=== PATIENT | male | born 1990 | race Two or more races ===

== ENCOUNTER 2018-01-03 18:57 | Emergency (ER) | payer MEDICAID ==
[2018-01-03 19:35] VITALS: BP 155/74; PULSE 75; RESP 16; TEMP 98.6; O2SAT 98
--- NOTE | 2018-01-03 20:48 | ED PDOC ---
HPI: Male Pain Time Seen by Provider: 01/03/18 20:13 Chief Complaint (Nursing): Groin Pain Chief Complaint (Provider): Groin Pain History Per: Patient History/Exam Limitations: no limitations Onset/Duration Of Symptoms: Hrs Current Symptoms Are (Timing): Still Present Additional Complaint(s): 27 y/o male with no significant PMHx presents to the ED for evaluation of abdominal pain, onset 12 o'clock this afternoon. Patient reports of having a hernia for approximately one month. Patient states hernia is located on the right side and came out earlier today. Patient reports of pushing the hernia back in. However, patient states he continues to have pain. Pain is mostly located in the epigastric and RLQ. Patient states he has not seen a physician for hernia. Patient reports pain is constant today and worsens when he walks. Denies medications for symptoms, heavy lifting, fever, diarrhea, vomiting, testicular complaint, genital complaints, scrotal pain, back pain and other complaints. PMD: none Past Medical History Reviewed: Historical Data, Nursing Documentation, Vital Signs Vital Signs: Last Vital Signs Temp 98.6 F 01/03/18 19:34 Pulse 75 01/03/18 19:34 Resp 16 01/03/18 19:34 BP 155/74 H 01/03/18 19:34 Pulse Ox 98 01/03/18 19:34 - Medical History PMH: No Chronic Diseases - Surgical History Surgical History: No Surg Hx - Family History Family History: States: [place] (father ()) - Immunization History Hx Tetanus Toxoid Vaccination: No Hx Influenza Vaccination: No Hx Pneumococcal Vaccination: No - Home Medications Home Medications: Ambulatory Orders Medication Instructions Recorded Nystatin [Mycostatin Cream] 1 applic TOP TID #30 tube 03/05/15 Acetaminophen with Codeine 1 - 2 each PO QID #14 tablet 08/03/16 [Tylenol with Codeine #3 Tablet] Aspirin 325 mg PO DAILY 08/03/16 Ibuprofen [Motrin Tab] 800 mg PO QID #20 tab 08/03/16 - Allergies Allergies/Adverse Reactions: Allergies Allergy/AdvReac Type Severity Reaction Status Date / Time cabello Allergy Mild RASH Verified 03/05/15 14:23 Review of Systems ROS Statement: Except As Marked, All Systems Reviewed And Found Negative Constitutional: Negative for: Fever Gastrointestinal: Positive for: Abdominal Pain. Negative for: Vomiting, Diarrhea Genitourinary Male: Negative for: Scrotal Pain, Penile Pain Musculoskeletal: Negative for: Back Pain Physical Exam - Reviewed Nursing Documentation Reviewed: Yes Vital Signs Reviewed: Yes - Physical Exam Appears: Positive for: No Acute Distress Head Exam: Positive for: ATRAUMATIC, NORMOCEPHALIC Skin: Positive for: Normal Color, Warm, Dry Eye Exam: Positive for: Normal appearance, EOMI, PERRL Neck: Positive for: Normal, Painless ROM Cardiovascular/Chest: Positive for: Regular Rate, Rhythm. Negative for: Murmur Respiratory: Positive for: Normal Breath Sounds. Negative for: Respiratory Distress Gastrointestinal/Abdominal: Positive for: Soft, Tenderness (Epigastric and RLQ Tenderness). Negative for: Rebound (no palpable hernia) Back: Positive for: Normal Inspection. Negative for: L CVA Tenderness, R CVA Tenderness, Vertebral Tenderness Extremity: Positive for: Normal ROM. Negative for: Pedal Edema, Deformity Neurologic/Psych: Positive for: Alert, Oriented. Negative for: Motor/Sensory Deficits - Laboratory Results Result Diagrams: 01/03/18 21:00 01/03/18 21:00 - ECG O2 Sat by Pulse Oximetry: 98 (RA) Pulse Ox Interpretation: Normal Medical Decision Making Medical Decision Making: Time: 2024 Impression: Abdominal Pain and Inguinal Pain Differentials include but not limited to acute appendicitis, small bowel obstruction and additional diagnosis of inguinal hernia. -- Inguinal hernia unlikely due to incarcerated hernia. On exam, no hernia was present. -- CT Abd/Pelvis IV Contrast ONLY -- CMP -- Urine Drug Screen -- ED Urine Dipstick -- CBC with differentials CT Impressions: 1. Enteritis. Infectious and inflammatory etiologies are considered. Consider consultation with GI service and follow up with upper endoscopy and colonoscopy. 2. Small fluid containing right inguinal hernia is seen. Scribe Attestation: Documented by Kerry Zelaya, acting as a scribe for Nabil Bowen MD. Provider Scribe Attestation: All medical record entries made by the Scribe were at my direction and personally dictated by me. I have reviewed the chart and agree that the record accurately reflects my personal performance of the history, physical exam, medical decision making, and the department course for this patient. I have also personally directed, reviewed, and agree with the discharge instructions and disposition. Disposition - Clinical Impression Clinical Impression: Enteritis, Inguinal hernia - Patient ED Disposition Is Patient to be Admitted: No Doctor Will See Patient In The: Office Counseled Patient/Family Regarding: Studies Performed, Diagnosis, Need For Followup - Disposition Referrals: [facility] [Outside] Karol Lora MD [Staff Provider] - Disposition: Routine/Home Disposition Time: 23:44 Condition: GOOD Additional Instructions: LEV MCPHERSON, thank you for letting us take care of you today. Your provider was Nabil Bowen MD and you were treated for GROIN PAIN. The emergency medical care you received today was directed at your acute symptoms. If you were prescribed any medication, please fill it and take as directed. It may take se veral days for your symptoms to resolve. Return to the Emergency Department if your symptoms worsen, do not improve, or if you have any other problems. Please contact your doctor or call one of the physicians/clinics you have been referred to that are listed on the Patient Visit Information form that is included in your discharge packet. Bring any paperwork you were given at discharge with you along with any medications you are taking to your follow up visit. Our treatment cannot replace ongoing medical care by a primary care provider outside of the emergency department. Thank you for allowing the [facility] team to be part of your care today. If you had an X-Ray or CT scan: A Radiologist will review the ED reading if any change in treatment is needed we will contact you. If you had a blood, urine, or wound culture: It will take several days for the results, if any change in treatment is needed we will contact you. If you had an STI test: It will take 48 hours for the results. Please call after 1 week if you have not heard back. Instructions: Groin Hernia (DC), Stomach Ache and Stomach Upset
[2018-01-03 21:05] LABS: EOS # 0.2 K/uL (0.0-0.7); EOS % 3.4 % (0.0-4.0); HEMOGLOBIN 14.8 g/dL (12.0-18.0); LYMPH # 2.2 K/uL (1.0-4.3); LYMPH % 43.4 % (20.0-40.0); MEAN CELL VOLUME 94.2 fl (80.0-94.0); MEAN CORPUSCULAR HEMOGLOBIN 31.6 pg (27.0-31.0); MEAN CORPUSCULAR HGB CONC 33.6 g/dL (33.0-37.0); MEAN PLATELET VOLUME 8.3 fl (7.2-11.7); MONO # 0.5 K/uL (0.0-0.8); MONO % 9.5 % (0.0-10.0); NEUT # 2.2 K/uL (1.8-7.0); NEUT % 42.7 % (50.0-75.0); RBC 4.69 Mil/uL (4.40-5.90); RED CELL DISTRIBUTION WIDTH 13.4 % (11.5-14.5); WHITE BLOOD COUNT 5.1 K/uL (4.8-10.8)
[2018-01-03 21:15] LABS: ALB/GLOB RATIO 1.5 (1.0-2.1); ALBUMIN 4.8 g/dL (3.5-5.0); ALT/SGPT 43 U/L (21-72); AST/SGOT 38 U/L (17-59); BLOOD UREA NITROGEN 10 mg/dl (9-20); CALCIUM 9.6 mg/dL (8.4-10.2); GFR NON-AFRICAN AMERICAN > 60
[2018-01-03 21:48] LABS: BARBITURATES, UR NEGATIVE (NEGATIVE); BENZODIAZEPINES, UR NEGATIVE (NEGATIVE); OPIATES, UR NEGATIVE (NEGATIVE); PHENCYCLIDINE, UR NEGATIVE (NEGATIVE)
[2018-01-03] MEDS ORDERED: Iohexol 300 100 ML IJ ONE (21:59)
[2018-01-03] MEDS ORDERED: Sodium Chloride 0.9% 50 ML IV ONE (22:00)
--- NOTE | 2018-01-04 09:52 | CT ---
Date of service: 01/03/2018 PROCEDURE: CT Abdomen and Pelvis with contrast HISTORY: abdominal pain epigastric RLQ, hx inguinal hernia COMPARISON: None available. TECHNIQUE: CT scan of the abdomen and pelvis was performed after administration of intravenous contrast. Oral contrast was not administered. Coronal and sagittal reformatted images were obtained. Contrast dose: Radiation dose: Total exam DLP = 660.02 mGy-cm. This CT exam was performed using one or more of the following dose reduction techniques: Automated exposure control, adjustment of the mA and/or kV according to patient size, and/or use of iterative reconstruction technique. FINDINGS: LOWER THORAX: The visualized lungs are clear. LIVER: Normal in size with homogeneous enhancement. No gross lesion or ductal dilatation. GALLBLADDER AND BILE DUCTS: Well distended. No calcified gallstones, wall thickening or pericholecystic fluid. PANCREAS: Normal in size with homogeneous enhancement. No gross lesion or ductal dilatation. SPLEEN: Normal in size and appearance. ADRENALS: No discrete nodule. KIDNEYS AND URETERS: Normal in size with homogeneous enhancement. No hydronephrosis. No solid mass. VASCULATURE: No aortic aneurysm. BOWEL: Evaluation of the bowel is limited in the absence of oral contrast. There are fluid filled normal caliber small bowel loops. There is moderate amount of stool in the ascending colon. The left hemicolon is decompressed. No bowel wall thickening or obstruction. APPENDIX: Normal appendix. PERITONEUM: No free fluid. No free air. LYMPH NODES: No enlarged lymph nodes. BLADDER: Well distended and normal in appearance. REPRODUCTIVE: The uterus is normal in size. BONES: No acute fracture. Within normal limits for the patient's age. OTHER FINDINGS: There is a small right inguinal hernia containing fluid. IMPRESSION: Fluid-filled normal caliber small bowel loops may represent nonspecific enteritis. No bowel obstruction. Moderate amount of stool in the ascending colon. Small right inguinal hernia containing fluid. A preliminary report was provided by [employer].
== END 2018-01-03 23:52 | disposition home or self-care (01) ==
LOC: H.ER 18:57 → SUPCPDRO 18:57 → H.ER 23:52
DX: K52.9 Noninfective gastroenteritis and colitis, unspecified (principal); K40.90 Unilateral inguinal hernia, without obstruction or gangrene, not specified as recurrent
CPT/HCPCS: 74177; 80053; 85025; 99283; G0480; Q9967